=== PATIENT | male | born 1935 | race Caucasian/White ===

== ENCOUNTER 2021-07-18 02:23 | Inpatient (IN) | payer MEDICARE, MEDICAID ==
[~2021-07-18] VITALS: Ht 177.8 cm; Wt 78.7 kg
[2021-07-18] MEDS ORDERED: SODIUM CHLORIDE 0.9% 1,000 ML IV ONE (03:00)
[2021-07-18 03:25] LABS: BASOPHILS % 0.3 % (0.0-2.0); EOSINOPHILS % 0.6 % (0.0-5.0); HEMATOCRIT. 30.8 % (42.0-52.0); HEMOGLOBIN. 10.7 g/dL (14.0-18.0); LYMPHOCYTES % 10.3 % (20.0-50.0); MEAN CORPUSCULAR HEMOGLOBIN 30.3 pg (28.0-32.0); MEAN CORPUSCULAR VOLUME 87.1 fL (80.0-94.0); MEAN PLATELET VOLUME 8.8 fl (7.4-10.4); MONOCYTES % 8.5 % (2.0-8.0); NEUTROPHILS % 80.3 % (40.0-76.0); PLATELET 74 x1000/uL (130-400); RED BLOOD CELL COUNT 3.54 mill/uL (4.7-6.1); RED CELL DISTRIBUTION WIDTH 13.3 % (11.6-14.6)
[2021-07-18 03:31] LABS: CHLORIDE 108 mEq/L (98-107)
[2021-07-18] MEDS ORDERED: AMLODIPINE 5MG TABLET PO ONE (06:30)
[2021-07-18 10:15] VITALS: BP 158/61
[2021-07-18] MEDS ORDERED: ACETAMINOPHEN 325MG TABLET PO PRN ×2 (10:45)
[2021-07-18] MEDS ORDERED: HYDRALAZINE 20MG/ML VIAL IV PRN (10:45)
[2021-07-18] MEDS ORDERED: DIPHENHYDRAMINE 50MG/ML VIAL IV PRN (10:45)
[2021-07-18] MEDS: SODIUM CHLORIDE 0.9% 1,000 ML IV SCH ×2 (10:45→23:37)
[2021-07-18] MEDS ORDERED: ONDANSETRON HCL 4MG/2ML INJ IV PRN (10:45)
[2021-07-18] MEDS ORDERED: CLONIDINE 0.1MG TABLET PO PRN ×2 (10:45)
[2021-07-18 12:00] VITALS: BP 149/62
[2021-07-18 13:30] VITALS: BP 158/61
[2021-07-18 16:00] VITALS: BP 189/85
[2021-07-18] MEDS ORDERED: OLME1TAB54 PO (16:55)
[2021-07-18] MEDS ORDERED: HYDR-4009 MT (16:55)
[2021-07-18] MEDS ORDERED: CLON0.1T PO (16:55)
[2021-07-18] MEDS: PANTOPRAZOLE SODIUM 40 MG/VIAL IV SCH (17:22)
[2021-07-18] MEDS ORDERED: CIPR500S3 PO (17:50)
[2021-07-18] MEDS: HYDROCODONE/ACETAMINOPHEN 10/325MG TABLET PO PRN (18:14)
[2021-07-18] MEDS ORDERED: LEVOFLOXACIN 500MG TABLET PO NR (18:45)
[2021-07-18] MEDS ORDERED: NALOXONE HCL 0.4MG/ML VIAL IV PRN (19:00)
[2021-07-18 19:26] LABS: HEMATOCRIT 26.8 % (42.0-52.0); HEMOGLOBIN 9.4 g/dL (14.0-18.0)
[2021-07-18 19:48] LABS: TOTAL IRON BINDING CAPACITY 213 ug/dL (250-450)
[2021-07-18 20:00] VITALS: BP 120/71
[2021-07-18] MEDS ORDERED: CIPROFLOXACIN 500 MG PO SCH (20:00)
[2021-07-18] MEDS: AMLODIPINE 5MG TABLET PO SCH (20:19)
[2021-07-18] MEDS: CLONIDINE 0.1MG TABLET PO SCH (20:20)
[2021-07-18 20:34] LABS: FOLIC ACID (FOLATE) SERUM 11.8 ng/mL (>5.38)
[2021-07-18] MEDS: ZOLPIDEM TARTRATE 5MG TABLET PO PRN (22:45)
[2021-07-19] VITALS: BP 112/59
[2021-07-19 01:13] LABS: HEMOGLOBIN 8.7 g/dL (14.0-18.0)
[2021-07-19] MEDS: PANTOPRAZOLE SODIUM 40 MG/VIAL IV SCH ×2 (03:09→16:31)
[2021-07-19 08:00] VITALS: BP 154/78
[2021-07-19 08:26] LABS: HEMATOCRIT. 24.9 % (42.0-52.0); HEMOGLOBIN. 8.8 g/dL (14.0-18.0); MEAN CORPUSCULAR HEMOGLOBIN 30.6 pg (28.0-32.0); MEAN CORPUSCULAR VOLUME 86.7 fL (80.0-94.0); MEAN PLATELET VOLUME 9.3 fl (7.4-10.4); PLATELET 69 x1000/uL (130-400); RED BLOOD CELL COUNT 2.87 mill/uL (4.7-6.1); RED CELL DISTRIBUTION WIDTH 13.3 % (11.6-14.6)
[2021-07-19] MEDS: LOSARTAN POTASSIUM 100 MG TABLET PO SCH (09:10)
[2021-07-19] MEDS: CLONIDINE 0.1MG TABLET PO SCH ×2 (09:10→21:38)
[2021-07-19] MEDS: AMLODIPINE 5MG TABLET PO SCH ×2 (09:11→21:38)
[2021-07-19 10:03] VITALS: BP 104/66
[2021-07-19 10:31] LABS: PLATELET ESTIMATE DECREASED
[2021-07-19] MEDS: LEVOFLOXACIN 250MG TABLET PO SCH (11:53)
[2021-07-19 12:00] VITALS: BP 104/58
[2021-07-19 12:35] LABS: HEMATOCRIT 22.2 % (42.0-52.0); HEMOGLOBIN 7.7 g/dL (14.0-18.0)
[2021-07-19] MEDS: SODIUM CHLORIDE 0.9% 1,000 ML IV SCH (14:48)
[2021-07-19 16:00] VITALS: BP 121/73
[2021-07-19 20:20] VITALS: BP 130/66
[2021-07-19 20:56] LABS: INR 1.6; PROTHROMBIN TIME 16.4 sec (9.6-11.0)
[2021-07-19 21:00] LABS: HEMOGLOBIN 6.9 g/dL (14.0-18.0)
[2021-07-19] MEDS: ZOLPIDEM TARTRATE 5MG TABLET PO PRN (21:39)
[2021-07-19] MEDS: HYDROCODONE/ACETAMINOPHEN 10/325MG TABLET PO PRN (21:39)
[2021-07-20] VITALS (14 sets, daily range): BP systolic 116–166; BP diastolic 50–77
[2021-07-20] MEDS: PANTOPRAZOLE SODIUM 40 MG/VIAL IV SCH ×2 (05:03→18:36)
[2021-07-20] MEDS: SODIUM CHLORIDE 0.9% 1,000 ML IV SCH ×2 (05:04→18:37)
[2021-07-20 06:55] LABS: MEAN CORPUSCULAR HEMOGLOBIN 30.7 pg (28.0-32.0); MEAN CORPUSCULAR VOLUME 86.9 fL (80.0-94.0); MEAN PLATELET VOLUME 9.6 fl (7.4-10.4); PLATELET 82 x1000/uL (130-400); RED BLOOD CELL COUNT 2.27 mill/uL (4.7-6.1); RED CELL DISTRIBUTION WIDTH 13.6 % (11.6-14.6)
[2021-07-20 07:07] LABS: HEMATOCRIT. 19.7 % (42.0-52.0); HEMOGLOBIN. 6.9 g/dL (14.0-18.0)
[2021-07-20] MEDS: AMLODIPINE 5MG TABLET PO SCH ×2 (09:00→21:42)
[2021-07-20] MEDS: CLONIDINE 0.1MG TABLET PO SCH ×2 (09:50→21:41)
[2021-07-20] MEDS: LEVOFLOXACIN 250MG TABLET PO SCH (11:05)
[2021-07-20] MEDS: LOSARTAN POTASSIUM 100 MG TABLET PO SCH (11:05)
[2021-07-20] MEDS: HYDROCODONE/ACETAMINOPHEN 10/325MG TABLET PO PRN (11:06)
[2021-07-20 14:23] LABS: PLATELET ESTIMATE DECREASED
[2021-07-20] MEDS ORDERED: IRON SUCROSE COMPLEX 100 MG/5 ML ML IV NR (15:00)
[2021-07-20] MEDS: ZOLPIDEM TARTRATE 5MG TABLET PO PRN (21:42)
[2021-07-21] VITALS: BP 153/67
[2021-07-21 04:00] VITALS: BP 149/60
[2021-07-21] MEDS: SODIUM CHLORIDE 0.9% 1,000 ML IV SCH ×2 (04:33→18:49)
[2021-07-21] MEDS: PANTOPRAZOLE SODIUM 40 MG/VIAL IV SCH ×2 (04:33→16:32)
[2021-07-21 06:12] LABS: HEMATOCRIT. 25.7 % (42.0-52.0); HEMOGLOBIN. 8.9 g/dL (14.0-18.0); MEAN CORPUSCULAR HEMOGLOBIN 30.3 pg (28.0-32.0); MEAN CORPUSCULAR VOLUME 87.1 fL (80.0-94.0); MEAN PLATELET VOLUME 9.5 fl (7.4-10.4); PLATELET 87 x1000/uL (130-400); RED BLOOD CELL COUNT 2.95 mill/uL (4.7-6.1); RED CELL DISTRIBUTION WIDTH 13.5 % (11.6-14.6)
[2021-07-21 08:00] VITALS: BP 135/75
[2021-07-21] MEDS: CLONIDINE 0.1MG TABLET PO SCH ×2 (08:37→21:13)
[2021-07-21] MEDS: LOSARTAN POTASSIUM 100 MG TABLET PO SCH (08:37)
[2021-07-21] MEDS: AMLODIPINE 5MG TABLET PO SCH ×2 (08:37→21:13)
[2021-07-21] MEDS: LEVOFLOXACIN 250MG TABLET PO SCH (10:40)
[2021-07-21 12:00] VITALS: BP 145/77
[2021-07-21 15:50] LABS: PLATELET ESTIMATE DECREASED
[2021-07-21 16:00] VITALS: BP 132/66
[2021-07-21] MEDS: SORBITOL 70% SOLN 30ML PO SCH ×2 (16:32→21:13)
[2021-07-21] MEDS: BISACODYL 5MG TABLET PO SCH ×2 (16:33→21:13)
[2021-07-21] MEDS: METOCLOPRAMIDE HCL 10MG/2ML VIAL IV SCH ×2 (16:33→21:14)
[2021-07-21 17:28] LABS: HEMATOCRIT 31.6 % (42.0-52.0); HEMOGLOBIN 10.4 g/dL (14.0-18.0)
[2021-07-21] MEDS: HYDROCODONE/ACETAMINOPHEN 10/325MG TABLET PO PRN (18:51)
[2021-07-21 20:00] VITALS: BP 136/73
[2021-07-22] VITALS: BP 148/76
[2021-07-22 00:20] LABS: HEMATOCRIT 27.1 % (42.0-52.0); HEMOGLOBIN 9.4 g/dL (14.0-18.0)
[2021-07-22] MEDS: METOCLOPRAMIDE HCL 10MG/2ML VIAL IV SCH ×3 (00:20→08:45)
[2021-07-22] MEDS: BISACODYL 5MG TABLET PO SCH ×3 (00:20→08:44)
[2021-07-22] MEDS: SORBITOL 70% SOLN 30ML PO SCH ×3 (00:20→08:45)
[2021-07-22] MEDS: PANTOPRAZOLE SODIUM 40 MG/VIAL IV SCH ×2 (05:13→16:46)
[2021-07-22 05:53] LABS: HEMATOCRIT. 27.2 % (42.0-52.0); HEMOGLOBIN. 9.2 g/dL (14.0-18.0); MEAN CORPUSCULAR HEMOGLOBIN 29.9 pg (28.0-32.0); MEAN CORPUSCULAR VOLUME 88.1 fL (80.0-94.0); MEAN PLATELET VOLUME 9.2 fl (7.4-10.4); PLATELET 90 x1000/uL (130-400); RED BLOOD CELL COUNT 3.08 mill/uL (4.7-6.1)
[2021-07-22 08:00] VITALS: BP 165/75
[2021-07-22] MEDS: AMLODIPINE 5MG TABLET PO SCH ×2 (08:44→21:05)
[2021-07-22] MEDS: CLONIDINE 0.1MG TABLET PO SCH ×2 (08:44→21:05)
[2021-07-22] MEDS: SODIUM CHLORIDE 0.9% 1,000 ML IV SCH ×2 (08:45→21:41)
[2021-07-22] MEDS: LOSARTAN POTASSIUM 100 MG TABLET PO SCH (09:00)
[2021-07-22] MEDS: LEVOFLOXACIN 250MG TABLET PO SCH (10:40)
[2021-07-22 12:00] VITALS: BP 156/117
[2021-07-22 12:54] LABS: HEMATOCRIT 29.5 % (42.0-52.0); HEMOGLOBIN 10.3 g/dL (14.0-18.0)
[2021-07-22 14:36] LABS: PLATELET ESTIMATE DECREASED
[2021-07-22 16:00] VITALS: BP 139/76
[2021-07-22] MEDS ORDERED: SORBITOL 70% SOLN 30ML PO NR ×2 (16:00→20:00)
[2021-07-22 20:00] VITALS: BP_SYST 130; BP_SYST 134; BP_DIAS 56; BP_DIAS 77
[2021-07-22 21:18] LABS: INR 1.7; PROTHROMBIN TIME 17.3 sec (9.6-11.0)
[2021-07-22 23:47] VITALS: BP 154/75
[2021-07-23] VITALS (9 sets, daily range): BP systolic 146–168; BP diastolic 57–74
[2021-07-23] MEDS: PANTOPRAZOLE SODIUM 40 MG/VIAL IV SCH ×2 (05:24→19:06)
[2021-07-23 06:57] LABS: HEMATOCRIT. 22.5 % (42.0-52.0); MEAN CORPUSCULAR HEMOGLOBIN 30.7 pg (28.0-32.0); MEAN CORPUSCULAR VOLUME 87.1 fL (80.0-94.0); MEAN PLATELET VOLUME 8.6 fl (7.4-10.4); PLATELET 77 x1000/uL (130-400); RED BLOOD CELL COUNT 2.59 mill/uL (4.7-6.1); RED CELL DISTRIBUTION WIDTH 13.9 % (11.6-14.6)
[2021-07-23 06:59] LABS: INR 1.5; PROTHROMBIN TIME 15.3 sec (9.6-11.0)
[2021-07-23] MEDS: LOSARTAN POTASSIUM 100 MG TABLET PO SCH (08:48)
[2021-07-23] MEDS: AMLODIPINE 5MG TABLET PO SCH ×2 (08:48→22:04)
[2021-07-23] MEDS: CLONIDINE 0.1MG TABLET PO SCH ×2 (08:49→22:03)
[2021-07-23 09:24] LABS: PLATELET ESTIMATE DECREASED
[2021-07-23] MEDS: SODIUM CHLORIDE 0.9% 1,000 ML IV SCH (09:53)
[2021-07-23] MEDS ORDERED: KCL 20MEQ/100ML PREMIX 100 ML IV SCH (10:00)
[2021-07-23] MEDS: LEVOFLOXACIN 250MG TABLET PO SCH (10:19)
[2021-07-23] MEDS ORDERED: FENTANYL CITRATE/PF 50MCG/ML 2ML VIAL ONE (14:36)
[2021-07-23] MEDS ORDERED: MIDAZOLAM HCL 5 MG/5 ML VIAL ONE (14:36)
[2021-07-23] MEDS ORDERED: MIDAZOLAM HCL 2 MG/2 ML VIAL IV PRN (14:37)
[2021-07-23] MEDS ORDERED: FENTANYL CITRATE/PF 50MCG/ML 2ML VIAL IV NR (14:39)
[2021-07-24] MEDS: SODIUM CHLORIDE 0.9% 1,000 ML IV SCH ×2 (00:05→14:24)
[2021-07-24 00:42] LABS: HEMATOCRIT 21.3 % (42.0-52.0); HEMOGLOBIN 7.5 g/dL (14.0-18.0); MEAN CORPUSCULAR HEMOGLOBIN 30.4 pg (28.0-32.0); MEAN CORPUSCULAR VOLUME 87.1 fL (80.0-94.0); PLATELET 80 x1000/uL (130-400); RED BLOOD CELL COUNT 2.45 mill/uL (4.7-6.1); RED CELL DISTRIBUTION WIDTH 14.2 % (11.6-14.6)
[2021-07-24 00:55] LABS: CHLORIDE 120 mEq/L (98-107)
[2021-07-24 01:23] LABS: HEPATITIS B SURFACE ANTIGEN NEGATIVE
[2021-07-24 01:31] LABS: INR 1.4; PARTIAL THROMBOPLASTIN TIME 33.2 sec (23.4-31.0); PROTHROMBIN TIME 14.6 sec (9.6-11.0)
[2021-07-24 04:00] VITALS: BP 143/60
[2021-07-24] MEDS: PANTOPRAZOLE SODIUM 40 MG/VIAL IV SCH ×2 (04:42→16:59)
[2021-07-24 08:00] VITALS: BP 146/46
[2021-07-24] MEDS: AMLODIPINE 5MG TABLET PO SCH (09:18)
[2021-07-24] MEDS: CLONIDINE 0.1MG TABLET PO SCH (09:18)
[2021-07-24] MEDS: LOSARTAN POTASSIUM 100 MG TABLET PO SCH (09:18)
[2021-07-24 09:36] LABS: HEMATOCRIT. 22.7 % (42.0-52.0); HEMOGLOBIN. 7.8 g/dL (14.0-18.0); MEAN CORPUSCULAR HEMOGLOBIN 30.4 pg (28.0-32.0); MEAN CORPUSCULAR VOLUME 87.9 fL (80.0-94.0); MEAN PLATELET VOLUME 8.5 fl (7.4-10.4); PLATELET 87 x1000/uL (130-400); RED BLOOD CELL COUNT 2.58 mill/uL (4.7-6.1)
[2021-07-24] MEDS: LEVOFLOXACIN 250MG TABLET PO SCH (11:29)
[2021-07-24 11:46] LABS: PLATELET ESTIMATE DECREASED
[2021-07-24 12:00] VITALS: BP 130/56
[2021-07-24] MEDS ORDERED: POTASSIUM CHLORIDE 20MEQ TABLET SR PO NR ×2 (13:45→15:30)
[2021-07-24 16:00] VITALS: BP 149/67
[2021-07-24] MEDS ORDERED: MAGNESIUM 1 G PREMIX 100 ML IV NR (17:00)
[2021-07-24 17:15] VITALS: BP 149/67
[2021-07-24 19:45] VITALS: BP 148/77
== END 2021-07-24 20:13 | disposition home or self-care (01) | DRG 393 ==
LOC: ER 02:23 → 8WST 05:46
PROVIDERS: ADMIT Internal Medicine; ATTEND Internal Medicine
PROC: 30233N1 Transfusion of Nonautologous Red Blood Cells into Peripheral Vein, Percutaneous Approach (ICD-10-PCS; 2021-07-20)
PROC: 0DJD8ZZ Inspection of Lower Intestinal Tract, Via Natural or Artificial Opening Endoscopic (ICD-10-PCS; principal; 2021-07-23)
PROC: 30233K1 Transfusion of Nonautologous Frozen Plasma into Peripheral Vein, Percutaneous Approach (ICD-10-PCS; 2021-07-23)
DX: K64.8 Other hemorrhoids (principal); N17.0 Acute kidney failure with tubular necrosis; K62.5 Hemorrhage of anus and rectum; N13.30 Unspecified hydronephrosis; C79.51 Secondary malignant neoplasm of bone; D68.9 Coagulation defect, unspecified; D69.6 Thrombocytopenia, unspecified; C61 Malignant neoplasm of prostate; D64.9 Anemia, unspecified; N40.0 Benign prostatic hyperplasia without lower urinary tract symptoms; E88.09 Other disorders of plasma-protein metabolism, not elsewhere classified; E87.6 Hypokalemia; I12.9 Hypertensive chronic kidney disease with stage 1 through stage 4 chronic kidney disease, or unspecified chronic kidney disease; Z20.822 Contact with and (suspected) exposure to COVID-19; K74.60 Unspecified cirrhosis of liver; N18.9 Chronic kidney disease, unspecified; R59.0 Localized enlarged lymph nodes; R16.1 Splenomegaly, not elsewhere classified; Z85.46 Personal history of malignant neoplasm of prostate
CPT/HCPCS: 36415; 71045; 74176; 76700; 80048; 80053; 82607; 82728; 82746; 83540; 83550; 83735; 85014; 85018; 85025; 85027; 85044; 86705; 86709; 86803; 86850; 86900; 86920; 86927; 87340; 87426; 99285; C9113; J0360; J2250; J2765; J3010; J3475; J3480; J7030; P9016; P9017